=== PATIENT | female | born 1955 | race African-American/Black ===

== ENCOUNTER 2018-06-04 13:08 | Emergency (ER) | payer BC ==
[~2018-06-04] VITALS: Ht 165.1 cm; Wt 76.2 kg
--- NOTE | ~2018-06-04 | EKG ---
[place] [address] [facility] [place] [address] ELECTROCARDIOGRAM REPORT Name: JOANNE HART [facility]ristal[facility] [id number] Admission: 06/04/18 Attend Phys: Discharge: 06/04/18 Date of : 51 Report #: [id number] THIS REPORT FOR: //name// [facility] ED Test Date: 2018-06-04 Test Time: 13:56:42 Pat Name: JOANNE HART Department: Room: Gender: F [employer] Department Chair: Millicent HERNÁNDEZ RN : 1955 Requested By: Sagar Easton Order Number: [id number] MD: Jung Gonzalez Measurements Intervals [place] Rate: 91 P: 61 AL: 150 QRS: 54 QRSD: 81 T: 40 QT: 349 QTc: 430 Interpretive Statements Sinus rhythm Normal tracing No previous ECG available for comparison Electronically Signed On 06-05-2018 7:45:27 CDT by Jung Gonzalez [email or web address] <ELECTRONICALLY SIGNED> By: Jung Gonzalez MD, [facility] 06/05/18 0745 [id number] Jung Gonzalez MD, FACC /EPI
[2018-06-04 13:50] LABS: ABSOLUTE NEUTROPHILS 5.2 thou/uL (1.4-8.2); BASOPHILS 0.6 % (0.0-2.0); EOSINOPHILS 2.4 % (0.0-3.0); HEMATOCRIT 39.6 % (37.0-47.0); HEMOGLOBIN 13.3 gm/dL (12.0-15.0); LYMPHOCYTES 23.1 % (24.0-44.0); MCH 29.4 pg (26.0-34.0); MCHC 33.6 g/dL (28.0-37.0); MCV 87.2 fL (80.0-100.0); MONOCYTES 7.5 % (1.0-8.0); PLATELET COUNT 226 thou/uL (150-400); POLYS 66.4 % (36.0-66.0); RBC 4.54 mil/uL (4.20-5.00); RDW 14.2 % (10.5-14.5); WBC 7.8 thou/uL (4.0-11.0)
[2018-06-04 13:56] LABS: ANION GAP 10 mmol/L (7-16); BUN 22 mg/dL (7-18); CALCIUM 10.6 mg/dL (8.5-10.1); CHLORIDE 106 mmol/L (98-107); CO2 26 mmol/L (21-32); CREATININE 1.3 mg/dL (0.6-1.0); GLUCOSE 133 mg/dL (74-106); POTASSIUM 3.5 mmol/L (3.5-5.1); SODIUM 142 mmol/L (136-145)
[2018-06-04 14:04] LABS: TROPONIN-I <0.06 ng/mL (<0.06)
[2018-06-04] MEDS ORDERED: SYNTHROID100 MC1 PO (14:10)
[2018-06-04] MEDS ORDERED: FOSAMAX 70 MG T70 MG PO (14:10)
[2018-06-04] MEDS ORDERED: SERTRALINE HCL50 MG PO (14:10)
[2018-06-04] MEDS ORDERED: COZAAR 25 MG TA25 M1 PO (14:10)
[2018-06-04] MEDS ORDERED: ASPIR 8181 MG PO (14:11)
[2018-06-04] MEDS ORDERED: VITAMIN D2000 UNIT PO (14:11)
[2018-06-04] MEDS ORDERED: CO Q-10100 MG PO (14:11)
[2018-06-04] MEDS ORDERED: LIVALO4 MG PO (14:11)
[2018-06-04] MEDS ORDERED: MULTIPLE VITAM1 EAC2 PO (14:12)
[2018-06-04] MEDS ORDERED: AUGMENTIN 875-1 EACH PO (16:28)
[2018-06-04 16:43] VITALS: BP 124/80
== END 2018-06-04 17:04 | disposition home or self-care (01) ==
LOC: ER 13:08
PROVIDERS: Emergency Medicine
DX: J18.9 Pneumonia, unspecified organism (principal); R91.8 Other nonspecific abnormal finding of lung field; I10 Essential (primary) hypertension; F32.9 Major depressive disorder, single episode, unspecified; E05.00 Thyrotoxicosis with diffuse goiter without thyrotoxic crisis or storm; Z88.6 Allergy status to analgesic agent; Z88.5 Allergy status to narcotic agent; Z88.8 Allergy status to other drugs, medicaments and biological substances